=== PATIENT | female | born 1980 | race Caucasian/White ===

== ENCOUNTER 2022-05-22 14:17 | Emergency (ER) | payer MEDICAID ==
[2022-05-22] MEDS ORDERED: Acetaminophen 500 MG Tab PO ONE (14:53)
[2022-05-22] MEDS ORDERED: Sodium Chloride 0.9% 1,000 ML IV ONE (14:53)
[2022-05-22] MEDS ORDERED: SUMAtriptan 6 MG/0.5 ML SDV SUBCUT ONE (14:53)
[2022-05-22] MEDS ORDERED: Metoclopramide 10 MG/2 ML SDV IVPUSH ONE (14:53)
[2022-05-22] MEDS ORDERED: Ketorolac 30 MG/ML SDV IVPUSH ONE (14:53)
[2022-05-22 15:21] LABS: ESTIMATED GFR 94 mL/min (>60)
== END 2022-05-22 17:50 | disposition home or self-care (01) ==
LOC: FB.ED 14:17
DX: G43.909 Migraine, unspecified, not intractable, without status migrainosus (principal); E86.0 Dehydration; R50.9 Fever, unspecified; G35 Multiple sclerosis; Z88.1 Allergy status to other antibiotic agents; Z79.899 Other long term (current) drug therapy
CPT/HCPCS: 71046; 80053; 81001; 85025; 86140; 96361; 96372; 96374; 96375; 99283; A9270; J1642; J1885; J2765; J3030; J7030; 99282

== ENCOUNTER 2023-11-07 06:57 | Day surgery (SDC) | payer MEDICAID ==
[2023-11-07] MEDS ORDERED: Propofol 200 MG/20 ML SDV IV ONE (06:58)
[2023-11-07] MEDS ORDERED: Midazolam 1 MG/ML 2 ML SDV IV ONE (06:58)
[2023-11-07] MEDS ORDERED: Lidocaine 2% 5 ML SDV IV ONE (06:58)
[2023-11-07] MEDS ORDERED: Sodium Chloride 0.9% 10 ML Syringe FLUSH PRN (07:00)
[2023-11-07] MEDS ORDERED: Lactated Ringers 1,000 ML IV SCH (07:00)
[2023-11-07] MEDS ORDERED: Simethicone Drops 40 MG/0.6 ML 30 ML Bottle ONE (08:17)
== END 2023-11-07 10:40 | disposition home or self-care (01) ==
LOC: FB.SDS 06:57
PROVIDERS: ATTEND Surgery
DX: K57.30 Diverticulosis of large intestine without perforation or abscess without bleeding (principal); K44.9 Diaphragmatic hernia without obstruction or gangrene; F41.1 Generalized anxiety disorder; Z87.891 Personal history of nicotine dependence; Z79.899 Other long term (current) drug therapy; Z88.1 Allergy status to other antibiotic agents; Z91.018 Allergy to other foods
CPT/HCPCS: 00813; 88305; A9270-GY; J1642; J2250; J2704; J3490; J7120

== ENCOUNTER 2025-06-13 23:31 | Emergency (ER) | payer MEDICAID ==
[2025-06-13] MEDS: Acetaminophen/oxyCODONE 325-5 MG Tab PO STA (23:56)
[2025-06-13] MEDS: Ondansetron 4 MG Tab.DIS PO ONE (23:57)
[2025-06-13] MEDS: Ketorolac 30 MG/ML SDV IM STA (23:59)
[2025-06-14] MEDS: hydrOXYzine HCl 50 MG/ML SDV IM ONE (00:27)
[2025-06-14] MEDS: SUMAtriptan 6 MG/0.5 ML SDV SUBCUT ONE (00:28)
== END 2025-06-14 00:55 | disposition home or self-care (01) ==
LOC: FB.ED 23:31
DX: G40.909 Epilepsy, unspecified, not intractable, without status epilepticus (principal); K21.9 Gastro-esophageal reflux disease without esophagitis; Z88.1 Allergy status to other antibiotic agents; Z88.8 Allergy status to other drugs, medicaments and biological substances; Z79.899 Other long term (current) drug therapy
CPT/HCPCS: 96372; 99283; A9270; J1885; J3030; J3410; Q0162

== ENCOUNTER 2025-10-04 12:49 | Emergency (ER) | payer MEDICAID ==
[2025-10-04] MEDS ORDERED: Ondansetron 4 MG Tab.DIS PO ONE (12:50)
[2025-10-04] MEDS ORDERED: Sodium Chloride 0.9% 10 ML Syringe FLUSH PRN (14:05)
[2025-10-04 14:31] LABS: BASOPHILS ABSOLUTE AUTO 0.0 x10-3/uL (0.0-0.1); BASOPHILS PERCENT AUTO 0.8 % (0.2-1.5); EOSINOPHILS ABSOLUTE AUTO 0.0 x10-3/uL (0.0-0.8); EOSINOPHILS PERCENT AUTO 0.0 % (0.6-8.1); LYMPHOCYTES ABSOLUTE AUTO 1.3 x10-3/uL (1.0-4.4); LYMPHOCYTES PERCENT AUTO 36.1 % (18.4-52.1); MEAN PLATELET VOLUME 8.1 fL (7.1-12.4); MONOCYTES ABSOLUTE AUTO 0.5 x10-3/uL (0.3-1.0); MONOCYTES PERCENT AUTO 14.8 % (4.4-15.7); NEUTROPHILS ABSOLUTE AUTO 1.8 x10-3/uL (1.5-6.3); NEUTROPHILS PERCENT AUTO 48.3 % (30.8-76.2); PLATELET COUNT,PLT 240 x10(3)uL (151-488); RED BLOOD CELL COUNT 3.61 x10(6)uL (3.60-5.20); RED CELL DISTRIBUTION WIDTH 13.6 % (12.3-16.5); WHITE BLOOD CELL COUNT,WBC 3.7 x10-3/uL (3.0-10.3)
[2025-10-04] MEDS: LORazepam 2 MG/ML SDV IVPUSH ONE (14:33)
[2025-10-04] MEDS: Ketorolac 30 MG/ML SDV IVPUSH ONE (14:33)
[2025-10-04 14:35] LABS: BLOOD UREA NITROGEN,BUN 11 mg/dL (7-18); CARBON DIOXIDE,CO2 23 mmol/L (21-32); CHLORIDE,CL 107 mmol/L (100-110); CREATININE 0.7 mg/dL (0.55-1.02); ESTIMATED GFR 109 mL/min (>60); GLUCOSE RANDOM 111 mg/dL (80-116); POTASSIUM,K 3.5 mmol/L (3.5-5.3); SODIUM,NA 141 mmol/L (135-145)
[2025-10-04 14:42] LABS: A/G RATIO 1.4; ALANINE AMINOTRANSFERASE,ALT 26 U/L (12-36); ASPARTATE AMNIOTRANSFERASE,AST 18 IU/L (5-25); BILIRUBIN TOTAL 0.4 mg/dL (0.1-1.3); PROTEIN TOTAL,TP 6.2 g/dL (6.0-8.0)
[2025-10-04 14:53] LABS: GLUCOSE,URINE NORMAL (NORMAL); OCCULT BLOOD,URINE NEGATIVE (NEGATIVE)
[2025-10-04 14:54] LABS: APPEARANCE,URINE CLEAR (CLEAR)
[2025-10-04] MEDS: diphenhydrAMINE 50 MG/ML SDV IVPUSH ONE (15:33)
[2025-10-04] MEDS: Acetaminophen/oxyCODONE 325-5 MG Tab PO ONE (17:03)
== END 2025-10-04 18:00 | disposition home or self-care (01) ==
LOC: FB.ED 12:49
DX: B34.9 Viral infection, unspecified (principal); E86.0 Dehydration; Z90.710 Acquired absence of both cervix and uterus; Z88.1 Allergy status to other antibiotic agents; Z88.8 Allergy status to other drugs, medicaments and biological substances; Z79.899 Other long term (current) drug therapy
CPT/HCPCS: 36415; 80053; 81003; 83605; 83735; 85025; 86140; 87428; 87651; 96361; 96365; 96375; 99284; A9270; J1200; J1630; J1642; J1885; J2060; J2550; J2765; J7030; Q0162; Q0164